=== PATIENT | female | born 1935 | race Caucasian/White ===

== ENCOUNTER 2018-11-22 08:18 | Emergency (ER) | payer MEDICARE ==
[~2018-11-22] VITALS: Ht 165.1 cm; Wt 57.7 kg
[2018-11-22 08:30] VITALS: BP 177/88
--- NOTE | 2018-11-22 09:02 | NUR ---
pt reports left flank pain for about 2.5 months. pain is intermittant. She describes the pain as sharp. denies urinary symptoms. occasional urgency. no hx of kidney stones.
[2018-11-22] MEDS ORDERED: METO25TA91 PO (09:07)
== END 2018-11-22 10:00 | disposition home or self-care (01) ==
LOC: ED 09:55
DX: S39.012A Strain of muscle, fascia and tendon of lower back, initial encounter (principal); I10 Essential (primary) hypertension; Z85.3 Personal history of malignant neoplasm of breast; Z85.118 Personal history of other malignant neoplasm of bronchus and lung; X58.XXXA Exposure to other specified factors, initial encounter; Y93.89 Activity, other specified; Y92.89 Other specified places as the place of occurrence of the external cause; Y99.8 Other external cause status
CPT/HCPCS: 99281